=== PATIENT | male | born 1960 | race Caucasian/White ===

== ENCOUNTER 2017-12-19 09:41 | Emergency (ER) | payer OTHER ==
[~2017-12-19] VITALS: Ht 180.3 cm; Wt 81.7 kg
[~2017-12-19 09:41] MED LIST: APAP650 PO; DOXYCYCLINE 10100 MG PO; IBUPROFEN 200200 M1 PO
[2017-12-19 10:47] LABS: ABSOLUTE BASOPHILS 0.1 thou/uL (0.0-0.2); ABSOLUTE EOSINOPHILS 0.1 thou/uL (0.0-0.7); ABSOLUTE LYMPHOCYTES 1.4 thou/uL (0.8-5.3); ABSOLUTE MONOCYTES 0.6 thou/uL (0.0-1.2); BASOPHILS 0.9 %; EOSINOPHILS 0.5 %; HEMATOCRIT 43.4 % (42.0-52.0); HEMOGLOBIN 14.8 gm/dL (14.0-18.0); LYMPHOCYTES 14.1 %; MCH 30.5 pg (26.0-34.0); MCHC 34.2 g/dL (28.0-37.0); MCV 89.3 fL (80.0-100.0); MONOCYTES 5.8 %; NUCLEATED RBCS 0 /100WBC; PLATELET COUNT* 221 thou/uL (150-400); POLYS 78.7 %; RBC 4.86 mil/uL (4.50-6.00); RDW-CV 13.4 % (10.5-14.5); WBC 10.1 thou/uL (4.0-11.0)
[2017-12-19 10:54] LABS: ANION GAP 6 mmol/L (7-16); BUN 14 mg/dL (7-18); CALCIUM 9.6 mg/dL (8.5-10.1); CHLORIDE 103 mmol/L (98-107); CO2 31 mmol/L (21-32); CREATININE 0.9 mg/dL (0.6-1.3); GLUCOSE 120 mg/dL (70-99); POTASSIUM 3.5 mmol/L (3.5-5.1); SODIUM 140 mmol/L (136-145)
[2017-12-19 11:04] LABS: ALBUMIN 4.3 g/dL (3.4-5.0); ALKALINE PHOSPHATASE 82 U/L (46-116); LIPASE 35 U/L (73-393); MAGNESIUM 2.3 mg/dL (1.8-2.4); NT-PRO BRAIN NAT PEPTIDE 157 pg/mL (<300); SGOT 20 U/L (15-37); SGPT 27 U/L (30-65); TOTAL BILIRUBIN 0.6 mg/dL (<0.1-1.0); TOTAL PROTEIN 8.2 g/dL (6.4-8.2); TROPONIN-I LEVEL <0.06 ng/mL (<0.06)
[2017-12-19 11:21] VITALS: BP 150/118
--- NOTE | 2017-12-20 11:38 | EKG ---
[place] [address] ELECTROCARDIOGRAM REPORT Name: BELLCHRISTINA Room: [facility]#: [id number] Admission: 12/19/17 Attend Phys: Discharge: 12/19/17 Date of : 64 Report #: [id number] THIS REPORT FOR: //name// [facility] ED Test Date: 2017-12-19 Test Time: 10:17:34 Pat Name: CHRISTINA LUU Department: Room: Gender: M [employer] Specialist: Roro METZ : 1960 Requested By: Michael Ridley Order Number: [id number] MD: Nitin Garcia Measurements Intervals Fowler Rate: 69 P: 38 PA: 124 QRS: 34 QRSD: 120 T: 26 QT: 386 QTc: 414 Interpretive Statements Sinus rhythm IVCD, consider atypical RBBB Probable left ventricular hypertrophy No previous ECG available for comparison Electronically Signed On 12-20-2017 11:38:25 CDT by Nitin Garcia [email or web address] <ELECTRONICALLY SIGNED> By: Nitin Garcia MD, [facility] 12/20/17 1138 D: 05/1016 16 Nitin Garcia MD, FACC /EPI
== END 2017-12-19 11:22 | disposition left against medical advice (07) ==
LOC: M.ERS 09:41
PROVIDERS: Emergency Medicine Emergency Medical Services
DX: R07.89 Other chest pain (principal); I10 Essential (primary) hypertension; Z88.0 Allergy status to penicillin

== ENCOUNTER 2019-05-15 09:55 | Emergency (ER) | payer OTHER ==
[~2019-05-15] VITALS: Ht 180.3 cm; Wt 79.4 kg
[2019-05-15 10:40] LABS: URINE BILIRUBIN NEGATIVE (Negative); URINE BLOOD TRACE (Negative); URINE CLARITY CLEAR; URINE COLOR YELLOW; URINE GLUCOSE-RANDOM NEGATIVE (Negative); URINE KETONES NEGATIVE (Negative); URINE LEUKOCYTES-REFLEX 1+ (Negative); URINE NITRITE-REFLEX NEGATIVE (Negative); URINE PROTEIN NEGATIVE (Negative); URINE SPECIFIC GRAVITY 1.025 (1.005-1.030); URINE UROBILINOGEN 0.2 E.U./dl (0.2-1.0)
[2019-05-15 10:46] LABS: SQUAMOUS 0-3 Few /LPF (0-3)
[2019-05-15 10:47] LABS: BACTERIA-REFLEX 1-9 Few /HPF (None Seen); CASTS None Seen /LPF (None Seen); CRYSTALS None Seen /LPF (None Seen); MUCUS 0-3 Light strn/LPF (None Seen); URINE RBC 0-2 Rare /HPF (0-2)
[2019-05-15] MEDS ORDERED: CIPROFLOXACIN500 M1 PO (10:59)
[2019-05-15 11:11] VITALS: BP 164/103
== END 2019-05-15 11:12 | disposition home or self-care (01) ==
LOC: M.ERS 09:55
PROVIDERS: Family Medicine
DX: N39.0 Urinary tract infection, site not specified (principal); I10 Essential (primary) hypertension; Z88.0 Allergy status to penicillin; Z98.890 Other specified postprocedural states

== ENCOUNTER 2019-11-26 19:24 | Emergency (ER) | payer OTHER ==
[~2019-11-26] VITALS: Ht 180.3 cm; Wt 79.4 kg
[~2019-11-26 19:24] MED LIST changes: +CIPROFLOXACIN500 M1 PO
[2019-11-26 20:02] VITALS: BP 150/112
== END 2019-11-26 20:20 | disposition home or self-care (01) ==
LOC: M.ERS 19:24
DX: S61.512A Laceration without foreign body of left wrist, initial encounter (principal); I10 Essential (primary) hypertension; Z90.49 Acquired absence of other specified parts of digestive tract; Z88.0 Allergy status to penicillin; W26.8XXA Contact with other sharp object(s), not elsewhere classified, initial encounter; Y93.89 Activity, other specified; Y92.89 Other specified places as the place of occurrence of the external cause; Y99.0 Civilian activity done for income or pay

== ENCOUNTER → 2020-02-26 | Outpatient (CLI) | payer OTHER ==
--- NOTE | 2020-02-26 17:04 | EXE ---
[place] [address] STRESS ECHOCARDIOGRAM Name: BELLCHRISTINA FONG Room: [facility]#: [id number] Admission: 02/26/20 Attend Phys: Saul Mckeon, Discharge: Date of : 64 Date of Service: 02/26/20 1704 Report #: [id number] THIS REPORT FOR: cc: Ofelia Sanches Ann FNPC Liston, Michael J. MD [facility] ~ APPROVED REPORT Study performed: 02/26/2020 15:11:58 Exam: Stress Echocardiogram Indication: Chest discomfort Patient Location: Out-Patient Stress Nurse: Emmy Corona RN Supervising Physician: Saul Jang MD Ht: 5 ft 11 in HR: 78 bpm BP: 135/88 mmHg Medical History Cardiac Risk Factors: Age, , Hyperlipidemia, HTN, Tobacco History (Former), FHX of CAD Procedure The patient underwent an Exercise Stress Test using the Mikhail Protocol. Blood pressure, heart rate, and EKG were monitored. An Echocardiogram was performed by manometer technician in four stages in quad fashion. At peak stress, four selected images were obtained and placed side by side with resting images for comparison. Stress Test Details Stress Test: Exercise stress testing was performed using a Mikhail protocol. HR Resting HR: 78 bpm Max Heart Rate (APMHR): 163 bpm Max HR Achieved: 152 bpm Target HR (85% APMHR): 138 bpm % of APMHR: 93 Recovery HR: 93 bpm HR response to stress: Normal HR response to stress BP Resting BP: 135/88 mmHg Max BP: 214/102 mmHg Recovery BP: 155/87 [place] [address] STRESS ECHOCARDIOGRAM Name: BELLCHRISTINA FONG Room: [facility]#: [id number] Admission: 02/26/20 Attend Phys: Saul Mckeon, Discharge: Date of : 64 Date of Service: 02/26/20 1704 Report #: [id number] BP response to stress: Normal blood pressure response to stress. ECG Resting ECG: Sinus Rhythm Stress ECG: Sinus Tachycardia ST Change: None Arrhythmia: None Recovery ECG: Sinus Rhythm Recovery ST Change: None Recovery Arrhythmia: None Clinical Reason for Termination: Completed protocol Exercise duration: 10 min 30 sec Highest Stage Achieved: Stage 4: 4.2 mph at 16% grade. Exercise capacity: 12.53 METs The patient exhibited good exercise tolerance on the standard Mikhail protocol. There were no cardiac symptoms. Stress ECG Conclusion The baseline twelve-lead EKG shows sinus rhythm with no significant ST segment or T wave abnormalities. EKGs obtained during and post exercise shows sinus rhythm and sinus tachycardia with no significant ST segment or T wave changes when compared to baseline. There were no stress-induced arrhythmias. Pre-Stress Echo The resting Echocardiogram showed normal left ventricular contractility with an estimated Ejection Fraction of about 60-65%. The resting echocardiogram demonstrated normal wall motion in all wall segments. Post-Stress Echo The stress Echocardiogram showed normal left ventricular contractility with an estimated Ejection Fraction of about >70%. Compared to rest, there were no stress-induced wall motion abnormalities. Conclusion Clinical Response: Non-ischemic Exercise Capacity: Superior Stress ECG Response: Non-ischemic Stress Echo Images: Non-ischemic There was no clinical, EKG or echocardiographic evidence of stress-induced ischemia. The patient exhibited good exercise tolerance on the standard was protocol. [place] [address] STRESS ECHOCARDIOGRAM Name: BELLCHRISTINA FONG Room: [facility]#: [id number] Admission: 02/26/20 Attend Phys: Saul Mckeon, Discharge: Date of : 64 Date of Service: 02/26/201703 Report #: [id number] study. Other Information Study Quality: Fair <Conclusion> There was no clinical, EKG or echocardiographic evidence of stress-induced ischemia. The patient exhibited good exercise tolerance on the standard was protocol. This is a low risk study. <ELECTRONICALLY SIGNED> By: Roby Fagan MD, [facility] 02/26/20 170 03 1704 Roby Fagan MD, FACC /INF
== END ==
LOC: M.CRD 13:33
PROVIDERS: ATTEND Internal Medicine Cardiovascular Disease
DX: R07.9 Chest pain, unspecified (principal)